=== PATIENT | female | born 1995 | race Caucasian/White ===

== ENCOUNTER 2018-03-30 04:01 | Emergency (ER) | payer SELFPAY ==
[~2018-03-30] VITALS: Ht 172.7 cm; Wt 106.6 kg
[2018-03-30 04:03] VITALS: BP 149/51
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
--- NOTE | 2018-03-30 04:30 | NUR ---
RADIOLOGY AT BEDSIDE.
[2018-03-30 04:48] VITALS: BP 149/51
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
--- NOTE | 2018-03-30 04:49 | NUR ---
PATIENT BIB [facility]ICE DEPT. PATIENT EXAMINED BY DR. WARREN. PATIENT MEDICALLY CLEARED AND RELEASED IN CUSTODY IN STABLE CONDITION. ORIGINAL PRE-BOOK FORM GIVEN TO OFFICER [place].
== END 2018-03-30 04:49 ==
LOC: MED 04:01
DX: S20.312A Abrasion of left front wall of thorax, initial encounter (principal); V89.2XXA Person injured in unspecified motor-vehicle accident, traffic, initial encounter; Y93.89 Activity, other specified; Y92.410 Unspecified street and highway as the place of occurrence of the external cause; Y99.8 Other external cause status
CPT/HCPCS: 71045; 81002; 81025; 99283; Q0092